=== PATIENT | female | born 1945 | race Caucasian/White ===

== ENCOUNTER → 2016-07-16 | Outpatient (CLI) | payer MEDICARE ==
[~2016-07-16] MED LIST: BENA20TA2 PO; CEPH500C PO; NITR100C3 PO; SPIREVA; TRAM-25 PO; ZOLP5TAB; benzapril
[2016-07-16 17:58] VITALS: BP 136/76
--- NOTE | 2016-07-16 17:58 | Urgent Care T Sheet Gen (E) ---
Intake General Temperature (Fahrenheit): 98.3 Pulse: 71 Blood Pressure Systolic: 136 Blood Pressure Diastolic: 76 Respirations: 22 SPO2: 97 Description of Symptoms Patient presents with 2 complaints. First, states she has been constipated. She states she has a long history. Doesn't take any daily stool softeners, usually takes a laxative as needed. States she was finally able to have a BM yesterday however still feels like she needs to go more. Next, which is her bigger complaint of the visit, she notes dysuria, dark urine and bladder pain. Has felt feverish and has been taking Ibuprofen. History of Present Illness Allergies: Coded Allergies: soy (Verified Allergy, Unknown, 02/28/16) Home Meds Active Scripts Nitrofurantoin/Nitrofuran Mac (Macrobid)100 Mg [id number] Mg PO BID Infection # 14 CAP Ref 0 Prov:SOY GUARDADO PA 07/16/16 Cephalexin 500 Mg [id number] Mg PO TID Infection #30 CAP Ref 0 Prov:RAKESH HINOJOSA DO 02/28/16 Reported Medications Benazepril HCl 20 Mg [id number] Mg PO DAILY 02/07/14 Zolpidem Tartrate (Ambien)5 Mg Tablet 03/31/12 Respiratory Constitutional Symptoms: Fever Malaise EENTM: No symptoms reported Respiratory: No symptoms reported Cardiovascular: No symptoms reported Gastrointestinal/Abdominal: Abdominal pain Constipation Genitourinary: Dysuria Frequency Pain All Other Systems Reviewed Remaining Systems: All other systems reviewed with negative findings Past Pntnhij-Afvpfi-Qrewfm Hx Patient's Social History Alcohol Use: Rarely Uses Smoking Status: Current every day smoker Surgeries/Hospitalizations Hospitalization/Surgery Hx: heart surg age 13 for hole in heart Appy heart cath with some blockage. "Not bad enough for stent." 2007 Respiratory Respiratory History: COPD, Emphysema Cardiovascular Cardiovascular History: Congenital Heart Disease Comment: cath 2008 Reproductive System Sexually Transmitted Diseases: No Gastrointestinal GI/Endocrine History: Constipation, Laxative use Diabetes Diabetes: No HEENT Impaired Vision: Glasses Hearing Impaired: None Psychosocial Behavior Disorders: Other, See Comment Physical Exam Physical Exam General Appearance: WD/WN No apparent distress Respiratory Exam: Lungs clear Normal breath sounds Cardiovascular Exam: Regular rate, rhythm GI/ Exam: Normal bowel sounds Tenderness (suprapubic and LLQ)No Guarding, No Rebound Progress/Orders Lab Results Labs Results: UA UA Lab Results ph 5.0 Specific [place] 1.015 Protein - Ketones - Blood - Nitrates - Leukocyte Esterase large 3+ Departure Urgent Care Impression Impression: Primary Impression: UTI (urinary tract infection) Qualified Code: N30.00 - Acute cystitis without hematuria Additional Impression: Chronic constipation Departure Disposition: 01 HOME OR SELF-CARE Condition: Stable Referrals: AMILCAR LEDESMA MD (PCP) Additional Instructions: I have started the patient on Macrobid BID for treatment of the UTI I have sent the urine for culture and will call with results. Regarding the chronic constipation, the patient feels she isn't quite empty however is much more comfortable than she was yesterday, prior to her BM. I asked if she has ever taken a daily stool softener, which she answered no. I suggested she try taking Colace daily or she may continue to treat her constipation intermittently with laxatives, as she has been doing for years. Suggested high fiber diet, increase fluids, etc Return as needed or f/u with PCP Patient understands DC instructions. All questions were answered. Scripts Nitrofurantoin/Nitrofuran Mac (Macrobid)100 Mg [id number] Mg PO BID Infection # 14 CAP Ref 0 Prov:SOY GUARDADO 07/16/16 End of report . SOY GUARDADO Jul 16, 2016 16:36
--- NOTE | 2016-07-21 15:32 | Urgent Care Follow Up Note (E) ---
Urgent Care Follow Up Note Urine culture showed Klebsiella pneumoniae. Was susceptible to Macrobid. Called patient and she states she is doing much better. Advised to finish the prescription and f/u as needed. All questions were answered. Scripts Nitrofurantoin/Nitrofuran Mac (Macrobid)100 Mg [id number] Mg PO BID Infection # 14 CAP Ref 0 Prov:SOY GUARDADO 07/16/16 SOY GUARDADO Jul 21, 2016 15:31
== END ==
LOC: MHUC 16:11
PROVIDERS: ATTEND Physician Assistant
DX: N30.00 Acute cystitis without hematuria (principal); K59.09 Other constipation
CPT/HCPCS: 81002; 99213